=== PATIENT | female | born 1960 | race Two or more races ===

== ENCOUNTER 2020-02-01 06:20 | Day surgery (SDC) | payer OTHER | END 2020-02-01 10:25 | disposition home or self-care (01) | LOC: AMB-ENDOS 06:20 | PROVIDERS: ATTEND Surgery | DX: D12.2 Benign neoplasm of ascending colon (principal); Z12.11 Encounter for screening for malignant neoplasm of colon; Z20.828 Contact with and (suspected) exposure to other viral communicable diseases ==